=== PATIENT | male | born 1975 | race Caucasian/White ===

== ENCOUNTER 2021-06-15 09:56 | Emergency (ER) | payer OTHER ==
[~2021-06-15] VITALS: Ht 167.6 cm; Wt 79.4 kg
[2021-06-15] MEDS ORDERED: ZYRTEC10 M2 PO (10:05)
[2021-06-15 11:49] LABS: URINE BILIRUBIN NEGATIVE (Negative); URINE BLOOD NEGATIVE (Negative); URINE CLARITY CLEAR; URINE COLOR YELLOW; URINE GLUCOSE-RANDOM NEGATIVE (Negative); URINE KETONES NEGATIVE (Negative); URINE LEUKOCYTES-REFLEX NEGATIVE (Negative); URINE NITRITE-REFLEX NEGATIVE (Negative); URINE PROTEIN NEGATIVE (Negative); URINE SPECIFIC GRAVITY 1.015 (1.005-1.030); URINE UROBILINOGEN 0.2 E.U./dl (0.2-1.0)
[2021-06-15] MEDS ORDERED: FLOMAX0.4 MG PO (12:48)
[2021-06-15] MEDS ORDERED: HYDROCODON-ACE1 EAC7 PO ×2 (12:48→12:53)
[2021-06-15] MEDS ORDERED: ONDANSETRON ODT4 MG PO (12:48)
[2021-06-15 13:08] LABS: ABSOLUTE BASOPHILS 0.1 thou/uL (0.0-0.2); ABSOLUTE LYMPHOCYTES 0.8 thou/uL (0.8-5.3); ABSOLUTE MONOCYTES 0.6 thou/uL (0.0-1.2); ABSOLUTE NEUTROPHILS 11.1 thou/uL (1.6-8.1); BASOPHILS 0.5 %; HEMATOCRIT 43.4 % (42.0-52.0); HEMOGLOBIN 14.8 gm/dL (14.0-18.0); LYMPHOCYTES 6.2 %; MCH 31.9 pg (26.0-34.0); MCHC 34.1 g/dL (28.0-37.0); MCV 93.5 fL (80.0-100.0); MONOCYTES 4.8 %; MPV 7.4 fl. (7.2-11.1); NUCLEATED RBCS 0 /100WBC; PLATELET COUNT* 279 thou/uL (150-400); POLYS 88.5 %; RBC 4.64 mil/uL (4.50-6.00); RDW-CV 12.8 % (10.5-14.5); WBC 12.6 thou/uL (4.0-11.0)
[2021-06-15 13:22] LABS: CALCIUM 8.7 mg/dL (8.5-10.1); CREATININE 1.3 mg/dL (0.6-1.3); POTASSIUM 4.3 mmol/L (3.5-5.1)
[2021-06-15 13:34] LABS: ALBUMIN 4.3 g/dL (3.4-5.0); TOTAL BILIRUBIN 0.5 mg/dL (<0.1-1.0); TOTAL PROTEIN 8.1 g/dL (6.4-8.2)
[2021-06-15 13:48] VITALS: BP 127/93
== END 2021-06-15 13:51 | disposition home or self-care (01) ==
LOC: M.ERS 09:56
PROVIDERS: Physician Assistant
DX: N20.1 Calculus of ureter (principal)

== ENCOUNTER → 2021-11-13 | Outpatient (CLI) | payer OTHER ==
[~2021-11-13] MED LIST: FLOMAX0.4 MG PO; HYDROCODON-ACE1 EAC7 PO; ONDANSETRON ODT4 MG PO; ZYRTEC10 M2 PO
== END ==
LOC: M.CT 14:44
PROVIDERS: ATTEND Nurse Practitioner Family
DX: N20.0 Calculus of kidney (principal); R22.9 Localized swelling, mass and lump, unspecified; K40.90 Unilateral inguinal hernia, without obstruction or gangrene, not specified as recurrent; R19.5 Other fecal abnormalities